=== PATIENT | female | born 1990 | race Caucasian/White ===

== ENCOUNTER 2019-07-18 23:59 | Emergency (ER) | payer SELFPAY ==
[~2019-07-18] VITALS: Ht 167.6 cm; Wt 61.2 kg
[2019-07-19 00:19] VITALS: BP 129/88
== END 2019-07-19 05:12 | disposition left against medical advice (07) ==
LOC: EDBD 23:59 → ER 07-19 00:04
DX: F10.129 Alcohol abuse with intoxication, unspecified (principal); R55 Syncope and collapse; R41.82 Altered mental status, unspecified; F41.9 Anxiety disorder, unspecified; F12.10 Cannabis abuse, uncomplicated; F17.210 Nicotine dependence, cigarettes, uncomplicated; Y90.9 Presence of alcohol in blood, level not specified